=== PATIENT | male | born 1985 | race African-American/Black ===

== ENCOUNTER 2017-03-12 00:04 | Emergency (ER) | payer SELFPAY ==
[~2017-03-12] VITALS: Ht 188 cm; Wt 75.3 kg
[2017-03-12 00:06] VITALS: BP 124/81
[2017-03-12] MEDS ORDERED: OXYcodone/APAP 5/325MG TABLET ONE (00:34)
[2017-03-12] MEDS ORDERED: OXYcodone/APAP 5/325MG TABLET PO ONE (01:30)
== END 2017-03-12 01:42 | disposition home or self-care (01) ==
LOC: ED 01:38
DX: S20.212A Contusion of left front wall of thorax, initial encounter (principal); Y04.0XXA Assault by unarmed brawl or fight, initial encounter; Y93.89 Activity, other specified; Y99.8 Other external cause status; Y92.89 Other specified places as the place of occurrence of the external cause
CPT/HCPCS: 99284